=== PATIENT | female | born 2000 | race African-American/Black ===

== ENCOUNTER 2020-05-25 15:21 | Emergency (ER) | payer SELFPAY ==
[~2020-05-25] VITALS: Ht 170.2 cm; Wt 73.0 kg
[2020-05-25] MEDS ORDERED: SODIUM CHLORIDE 0.9% 1,000 ML IV ONE (15:44)
[2020-05-25 16:20] LABS: BASOPHILS % 0.4 % (0.0-2.0); EOSINOPHILS % 1.3 % (0.0-5.0); HEMATOCRIT. 28.9 % (36.0-48.0); HEMOGLOBIN. 9.7 g/dL (12.0-16.0); MEAN CORPUSCULAR HEMOGLOBIN 30.4 pg (28.0-32.0); MEAN CORPUSCULAR VOLUME 90.4 fL (81.0-99.0); MONOCYTES % 8.7 % (2.0-8.0); NEUTROPHILS % 63.6 % (40.0-76.0); PLATELET 553 x1000/uL (130-400); RED BLOOD CELL COUNT 3.19 mill/uL (4.2-5.4); RED CELL DISTRIBUTION WIDTH 15.7 % (11.6-14.6)
[2020-05-25 16:28] LABS: CHLORIDE 107 mEq/L (98-107)
[2020-05-25 16:30] LABS: CLARITY URINE CLEAR (CLEAR); COLOR URINE DARK YELLOW (YELLOW); KETONES URINE 1+ (NEGATIVE); LEUKOCYTE ESTERASE URINE TRACE (NEGATIVE); NITRITE URINE NEGATIVE (NEGATIVE); OCCULT BLOOD URINE 2+ (NEGATIVE); PROTEIN URINE TRACE (NEGATIVE); SPECIFIC GRAVITY URINE 1.025 (1.005-1.030)
[2020-05-25 16:31] LABS: ETHANOL BLOOD < 10 mg/dL
[2020-05-25 16:45] LABS: *BARBITURATES SCREEN URINE NEGATIVE (NEGATIVE)
[2020-05-25 16:46] LABS: *BENZODIAZEPINES SCREEN URINE NEGATIVE (NEGATIVE); *COCAINE SCREEN URINE NEGATIVE (NEGATIVE); METHADONE URINE SCREEN NEGATIVE (NEGATIVE); OPIATES URINE SCREEN NEGATIVE (NEGATIVE); PHENCYCLIDINE URINE SCREEN NEGATIVE (NEGATIVE)
[2020-05-25 16:47] LABS: CANNABINOID URINE SCREEN NEGATIVE (NEGATIVE)
[2020-05-25 16:51] LABS: *AMPHETAMINES SCREEN URINE PRESUMTIVE POSITIVE (NEGATIVE)
[2020-05-25 22:30] VITALS: BP 116/54
== END 2020-05-25 22:58 | disposition home or self-care (01) ==
LOC: EDBD 15:21 → ER 15:21
DX: F15.10 Other stimulant abuse, uncomplicated (principal)
CPT/HCPCS: 36415; 76830; 76856; 80053; 80305; 80320; 81003; 81025; 84702; 85025; 86850; 86900; 86901; 96360; 99285; J7030; G0480